=== PATIENT | male | born 1945 | race Caucasian/White ===

== ENCOUNTER 2021-11-23 09:04 | Inpatient (IN) ==
[2021-11-23] MEDS ORDERED: Ondansetron 4 MG/2 ML VIAL IVP PRN ×2 (09:18→13:01)
[2021-11-23] MEDS ORDERED: Morphine Sulfate 2 MG/ML SYRINGE IVP ONE ×2 (09:18→10:10)
[2021-11-23 09:52] LABS: Basophils % 0.4 %; Immature Granulocytes % 0.3 % (0-4); Red Cell Distribution Width 16.8 % (11.5-14.5)
[2021-11-23 09:54] LABS: Eosinophils # 0.1 K/mcL (0.0-0.6); Eosinophils % 1.5 %; Hemoglobin 11.4 g/dL (12.9-16.9); Lymphocytes # 1.4 K/mcL (0.6-4.6); Lymphocytes % 20.6 %; Mean Corpuscular HGB Conc 28.5 g/dL (31.6-35.5); Mean Corpuscular Hemoglobin 23.5 pg (28.0-33.3); Mean Corpuscular Volume 82.5 fL (83.0-100.0); Mean Platelet Volume 9.1 fL (9.4-12.4); Monocytes # 0.6 K/mcL (0.0-1.3); Monocytes % 8.8 %; Neutrophils # 4.7 K/mcL (1.6-8.9); Platelet Count 246 K/mcL (140-400); Red Blood Count 4.85 M/mcL (4.19-5.50); Segmented Neutrophils % 68.4 %; White Blood Count 6.8 K/mcL (4.3-11.1)
[2021-11-23 10:00] LABS: INR 2.3; Prothrombin Time 25.4 Seconds (9.4-12.1)
[2021-11-23 10:03] LABS: Activated Partial Thrombo Time 39.3 Seconds (26.0-36.0)
[2021-11-23 10:04] LABS: BUN/Creatinine Ratio 17 (6-26); Blood Urea Nitrogen 19 mg/dL (8-23); Calcium 9.4 mg/dL (8.6-10.3); Carbon Dioxide 34 mEq/L (23-29); Chloride 102 mEq/L (98-107); Glucose 107 mg/dL (70-105); Osmolality,Calculated 295 (280-300); Potassium 3.8 mEq/L (3.5-5.1); Sodium 141 mEq/L (136-145); Troponin I < 0.03 ng/mL (< 0.04); eGFR For African Americans > 60 (> 60); eGFR For Non-African Americans > 60 (> 60)
[2021-11-23 10:21] LABS: Anisocytosis 1+ (Not Present); Hypochromasia Present (Not Present); Platelet Estimate Normal (Normal)
[2021-11-23] MEDS ORDERED: Naloxone 0.4 MG/ML INJ IVP PRN (11:05)
[2021-11-23 12:02] LABS: Influenza A PCR Negative (Negative); Influenza B PCR Negative (Negative); Resp. Syncytial Virus PCR Negative (Negative); SARS-CoV-2 by PCR (In House) Negative (Negative)
[2021-11-23] MEDS ORDERED: *HR* OxyCODONE Immed Rel 5 MG TABLET PO PRN (12:24)
[2021-11-23] MEDS ORDERED: Piperacillin/Tazobactam 3.375 GM in 0.9 % Sodium Chloride Mini Bag 100 ML IVPB PRN (12:58)
[2021-11-23] MEDS: *HR* OxyCODONE Immed Rel 5 MG TABLET PO PRN ×2 (13:23→18:53)
[2021-11-23] MEDS: carvediloL 6.25 MG TABLET PO SCH (20:47)
[2021-11-23] MEDS: *HR* HYDROmorphone (PF) 1 MG/ML SYRINGE IVP PRN (21:40)
[2021-11-24 04:43] LABS: Hemoglobin 10.1 g/dL (12.9-16.9); Immature Granulocytes % 0.3 % (0-4)
[2021-11-24 04:45] LABS: Basophils % 0.3 %; Eosinophils # 0.1 K/mcL (0.0-0.6); Eosinophils % 0.6 %; Hematocrit 35.2 % (37.5-50.1); Lymphocytes % 12.6 %; Mean Corpuscular HGB Conc 28.7 g/dL (31.6-35.5); Mean Corpuscular Hemoglobin 23.8 pg (28.0-33.3); Mean Platelet Volume 9.6 fL (9.4-12.4); Monocytes # 1.2 K/mcL (0.0-1.3); Monocytes % 12.8 %; Neutrophils # 6.7 K/mcL (1.6-8.9); Platelet Count 228 K/mcL (140-400); Red Blood Count 4.24 M/mcL (4.19-5.50); Red Cell Distribution Width 16.9 % (11.5-14.5); Segmented Neutrophils % 73.4 %; White Blood Count 9.1 K/mcL (4.3-11.1)
[2021-11-24 04:55] LABS: INR 2.3; Prothrombin Time 25.8 Seconds (9.4-12.1)
[2021-11-24 05:04] LABS: Calcium 8.7 mg/dL (8.6-10.3); Magnesium 1.5 mg/dL (1.6-2.6)
[2021-11-24 05:05] LABS: Lymphocytes # 1.2 K/mcL (0.6-4.6)
[2021-11-24] MEDS: *HR* OxyCODONE Immed Rel 5 MG TABLET PO PRN (05:24)
[2021-11-24 06:02] LABS: Hypochromasia Present (Not Present); Platelet Estimate Normal (Normal)
[2021-11-24] MEDS ORDERED: Losartan/HCTZ 50-12.5 TABLET PO SCH (09:00)
[2021-11-24] MEDS: carvediloL 6.25 MG TABLET PO SCH ×2 (09:40→20:14)
[2021-11-24] MEDS: 0.9 % Sodium Chloride 1,000 ML IVC SCH ×2 (09:40→20:14)
[2021-11-24] MEDS: *HR* HYDROmorphone (PF) 1 MG/ML SYRINGE IVP PRN (10:08)
[2021-11-24] MEDS ORDERED: 0.9 % Sodium Chloride 250 ML ONE ×2 (10:19→16:36)
[2021-11-24] MEDS ORDERED: Ondansetron 4 MG/2 ML VIAL ONE (13:44)
[2021-11-24] MEDS ORDERED: Lidocaine -MPF 2% 5 ML VIAL ONE (13:44)
[2021-11-24] MEDS ORDERED: *HR* Succinylcholine 200 MG/10 ML VIAL IVP ONE (13:44)
[2021-11-24] MEDS ORDERED: Lidocaine HCL 4 ML Topical Solution (Laryng-O-Jet Kit Sterile Pak) TP ONE (13:44)
[2021-11-24] MEDS ORDERED: *HR* FentaNYL (PF) 100 MCG/2 ML VIAL ONE (13:50)
[2021-11-24] MEDS ORDERED: *HR* Propofol 200 MG/20 ML VIAL IVP ONE (13:50)
[2021-11-24 14:37] LABS: Prothrombin Time 22.1 Seconds (9.4-12.1)
[2021-11-25 04:48] LABS: Red Cell Distribution Width 16.7 % (11.5-14.5)
[2021-11-25 04:49] LABS: Basophils % 0.1 %; Eosinophils # 0.1 K/mcL (0.0-0.6); Eosinophils % 0.7 %; Hematocrit 29.8 % (37.5-50.1); Hemoglobin 8.8 g/dL (12.9-16.9); Immature Granulocytes % 0.3 % (0-4); Lymphocytes % 10.9 %; Mean Corpuscular HGB Conc 29.5 g/dL (31.6-35.5); Mean Corpuscular Hemoglobin 24.3 pg (28.0-33.3); Mean Corpuscular Volume 82.3 fL (83.0-100.0); Mean Platelet Volume 9.5 fL (9.4-12.4); Monocytes # 1.2 K/mcL (0.0-1.3); Monocytes % 13.3 %; Neutrophils # 6.7 K/mcL (1.6-8.9); Platelet Count 190 K/mcL (140-400); Red Blood Count 3.62 M/mcL (4.19-5.50); Segmented Neutrophils % 74.7 %
[2021-11-25 04:51] LABS: INR 1.7; Prothrombin Time 19.3 Seconds (9.4-12.1)
[2021-11-25 04:57] LABS: Calcium 8.2 mg/dL (8.6-10.3); Magnesium 1.9 mg/dL (1.6-2.6); Phosphorous 4.3 mg/dL (2.7-4.5)
[2021-11-25 05:01] LABS: % Iron Saturation 5 % (20-55); Iron 20 mcg/dL (65-175); Transferrin 266 mg/dL (203-362)
[2021-11-25 05:16] LABS: Ferritin 20 ng/mL (20-250)
[2021-11-25 05:25] LABS: Folate > 22.3 ng/mL (3.0-16.0); Vitamin B12 384 pg/mL (250-1100)
[2021-11-25 05:40] LABS: Platelet Estimate Normal (Normal)
[2021-11-25 05:41] LABS: Hypochromasia Present (Not Present)
[2021-11-25] MEDS: carvediloL 6.25 MG TABLET PO SCH ×2 (08:59→21:15)
[2021-11-25] MEDS ORDERED: Cholecalciferol (D-3) 1,000 UNIT (25MCG) TABLET PO SCH ×2 (09:00)
[2021-11-25] MEDS ORDERED: Ropivacaine/PF 0.5% 30 ML VIAL ONE (11:15)
[2021-11-25] MEDS: *HR* HYDROmorphone (PF) 1 MG/ML SYRINGE IVP PRN (13:01)
[2021-11-25] MEDS: 0.9 % Sodium Chloride 1,000 ML IVC SCH (13:03)
[2021-11-25] MEDS ORDERED: Lidocaine -MPF 4% 5 ML AMPUL ONE (15:09)
[2021-11-25] MEDS ORDERED: *HR* FentaNYL (PF) 100 MCG/2 ML VIAL ONE (15:10)
[2021-11-25] MEDS ORDERED: Lidocaine -MPF 2% 5 ML VIAL ONE (15:10)
[2021-11-25] MEDS ORDERED: *HR* Propofol 200 MG/20 ML VIAL IVP ONE (15:10)
[2021-11-25] MEDS ORDERED: Ondansetron 4 MG/2 ML VIAL ONE (15:10)
[2021-11-25] MEDS ORDERED: *HR* Rocuronium Bromide 50 MG/5 ML VIAL ONE (15:11)
[2021-11-25] MEDS ORDERED: EPHEDrine 50 MG/ML VIAL ONE (17:06)
[2021-11-25] MEDS ORDERED: Albumin Human 5% 12.5 GM/250 ML IV.SOLN ONE (17:07)
[2021-11-25] MEDS: *HR* FentaNYL (PF) 100 MCG/2 ML VIAL IVP PRN ×3 (18:49→19:29)
[2021-11-25] MEDS ORDERED: *HR* FentaNYL (PF) 100 MCG/2 ML VIAL IVP ONE (18:53)
[2021-11-25] MEDS ORDERED: Ondansetron 4 MG/2 ML VIAL IVP PRN (20:35)
[2021-11-25] MEDS ORDERED: Acetaminophen 325 MG TABLET PO PRN (20:35)
[2021-11-25] MEDS ORDERED: Naloxone 0.4 MG/ML INJ IVP PRN (20:35)
[2021-11-25] MEDS ORDERED: *HR* HYDROcodone/Acet 5/325 mg TABLET PO PRN (20:35)
[2021-11-25] MEDS ORDERED: *HR* HYDROmorphone (PF) 1 MG/ML SYRINGE IVP PRN (20:35)
[2021-11-25] MEDS: *HR* OxyCODONE Immed Rel 5 MG TABLET PO PRN (21:14)
[2021-11-25] MEDS: CeFAZolin 2 GM/120 ML BAG IVPB SCH (23:36)
[2021-11-26 03:17] LABS: Basophils % 0.1 %; Red Cell Distribution Width 16.8 % (11.5-14.5)
[2021-11-26 03:18] LABS: Hematocrit 28.6 % (37.5-50.1); Hemoglobin 8.3 g/dL (12.9-16.9); Immature Granulocytes % 0.5 % (0-4); Lymphocytes # 0.4 K/mcL (0.6-4.6); Lymphocytes % 3.7 %; Mean Corpuscular Hemoglobin 24.4 pg (28.0-33.3); Mean Corpuscular Volume 84.1 fL (83.0-100.0); Mean Platelet Volume 9.3 fL (9.4-12.4); Monocytes # 0.7 K/mcL (0.0-1.3); Monocytes % 7.1 %; Neutrophils # 8.7 K/mcL (1.6-8.9); Platelet Count 176 K/mcL (140-400); Segmented Neutrophils % 88.6 %; White Blood Count 9.8 K/mcL (4.3-11.1)
[2021-11-26 03:36] LABS: Calcium 8.3 mg/dL (8.6-10.3); Magnesium 1.8 mg/dL (1.6-2.6); Potassium 4.3 mEq/L (3.5-5.1)
[2021-11-26 04:19] LABS: Hypochromasia Present (Not Present); Platelet Estimate Normal (Normal)
[2021-11-26] MEDS: Cholecalciferol (D-3) 1,000 UNIT (25MCG) TABLET PO SCH (08:17)
[2021-11-26] MEDS: carvediloL 6.25 MG TABLET PO SCH ×2 (08:17→20:23)
[2021-11-26] MEDS: *HR* OxyCODONE Immed Rel 5 MG TABLET PO PRN ×3 (08:17→20:23)
[2021-11-26] MEDS: CeFAZolin 2 GM/120 ML BAG IVPB SCH (08:17)
[2021-11-26] MEDS: Losartan/HCTZ 50-12.5 TABLET PO SCH (15:34)
[2021-11-26] MEDS: 0.9 % Sodium Chloride 1,000 ML IVC SCH (15:36)
[2021-11-26] MEDS ORDERED: Cyanocobalamin (B-12) 1,000 MCG/ML VIAL SQ ONE (17:15)
[2021-11-26] MEDS: Iron Sucrose Complex 250 MG in 0.9 % Sodium Chloride 250 ML IVPB SCH (18:01)
[2021-11-26] MEDS: *HR* Heparin 5,000 UNIT/ML VIAL SQ SCH (18:06)
[2021-11-27 05:30] LABS: Basophils % 0.1 %; Eosinophils % 0.2 %; Hematocrit 27.7 % (37.5-50.1); Hemoglobin 8.2 g/dL (12.9-16.9); Immature Granulocytes % 0.4 % (0-4); Lymphocytes # 0.9 K/mcL (0.6-4.6); Lymphocytes % 9.2 %; Mean Corpuscular HGB Conc 29.6 g/dL (31.6-35.5); Mean Corpuscular Hemoglobin 24.6 pg (28.0-33.3); Mean Corpuscular Volume 83.2 fL (83.0-100.0); Mean Platelet Volume 10.1 fL (9.4-12.4); Monocytes # 1.1 K/mcL (0.0-1.3); Monocytes % 10.8 %; Neutrophils # 8.1 K/mcL (1.6-8.9); Platelet Count 218 K/mcL (140-400); Red Blood Count 3.33 M/mcL (4.19-5.50); Red Cell Distribution Width 17.2 % (11.5-14.5); Segmented Neutrophils % 79.3 %; White Blood Count 10.2 K/mcL (4.3-11.1)
[2021-11-27 05:37] LABS: INR 1.2; Prothrombin Time 13.9 Seconds (9.4-12.1)
[2021-11-27 05:51] LABS: BUN/Creatinine Ratio 31 (6-26); Blood Urea Nitrogen 44 mg/dL (8-23); Calcium 8.9 mg/dL (8.6-10.3); Carbon Dioxide 31 mEq/L (23-29); Chloride 101 mEq/L (98-107); Glucose 114 mg/dL (70-105); Osmolality,Calculated 296 (280-300); Potassium 4.4 mEq/L (3.5-5.1); Sodium 137 mEq/L (136-145); eGFR For African Americans > 60 (> 60); eGFR For Non-African Americans 50 (> 60)
[2021-11-27] MEDS: *HR* Heparin 5,000 UNIT/ML VIAL SQ SCH ×2 (06:13→18:01)
[2021-11-27] MEDS: carvediloL 6.25 MG TABLET PO SCH ×2 (10:12→21:11)
[2021-11-27] MEDS: Cholecalciferol (D-3) 1,000 UNIT (25MCG) TABLET PO SCH (10:13)
[2021-11-27] MEDS: Losartan/HCTZ 50-12.5 TABLET PO SCH (10:13)
[2021-11-27] MEDS: Iron Sucrose Complex 250 MG in 0.9 % Sodium Chloride 250 ML IVPB SCH (10:16)
[2021-11-27] MEDS: 0.9 % Sodium Chloride 1,000 ML IVC SCH (11:56)
[2021-11-27] MEDS: *HR* OxyCODONE Immed Rel 5 MG TABLET PO PRN ×2 (12:24→21:11)
[2021-11-27] MEDS ORDERED: *HR* Warfarin 5 MG TABLET PO ONE (18:00)
[2021-11-27] MEDS ORDERED: Warfarin perPT PO PRN (18:00)
[2021-11-28] MEDS: *HR* OxyCODONE Immed Rel 5 MG TABLET PO PRN ×3 (04:08→17:29)
[2021-11-28 05:03] LABS: Mean Platelet Volume 10.3 fL (9.4-12.4); Monocytes % 13.7 %; Platelet Count 209 K/mcL (140-400)
[2021-11-28 05:05] LABS: Basophils % 0.4 %; Eosinophils # 0.3 K/mcL (0.0-0.6); Hematocrit 27.8 % (37.5-50.1); Hemoglobin 8.2 g/dL (12.9-16.9); Immature Granulocytes % 0.4 % (0-4); Lymphocytes # 1.2 K/mcL (0.6-4.6); Lymphocytes % 14.1 %; Mean Corpuscular HGB Conc 29.5 g/dL (31.6-35.5); Mean Corpuscular Hemoglobin 24.6 pg (28.0-33.3); Mean Corpuscular Volume 83.5 fL (83.0-100.0); Monocytes # 1.2 K/mcL (0.0-1.3); Neutrophils # 5.8 K/mcL (1.6-8.9); Nucleated Red Blood Cells 0.2 /100 WBC (0); Red Blood Count 3.33 M/mcL (4.19-5.50); Red Cell Distribution Width 17.8 % (11.5-14.5); Segmented Neutrophils % 68.4 %; White Blood Count 8.4 K/mcL (4.3-11.1)
[2021-11-28 05:11] LABS: INR 1.2; Prothrombin Time 13.8 Seconds (9.4-12.1)
[2021-11-28 05:22] LABS: BUN/Creatinine Ratio 39 (6-26); Blood Urea Nitrogen 44 mg/dL (8-23); Calcium 8.8 mg/dL (8.6-10.3); Carbon Dioxide 30 mEq/L (23-29); Chloride 102 mEq/L (98-107); Glucose 105 mg/dL (70-105); Magnesium 1.9 mg/dL (1.6-2.6); Osmolality,Calculated 300 (280-300); Potassium 3.8 mEq/L (3.5-5.1); Sodium 139 mEq/L (136-145); eGFR For African Americans > 60 (> 60); eGFR For Non-African Americans > 60 (> 60)
[2021-11-28 05:26] LABS: Hypochromasia Present (Not Present); Platelet Estimate Normal (Normal)
[2021-11-28] MEDS: carvediloL 6.25 MG TABLET PO SCH ×2 (09:19→21:09)
[2021-11-28] MEDS: Cholecalciferol (D-3) 1,000 UNIT (25MCG) TABLET PO SCH (09:19)
[2021-11-28] MEDS ORDERED: *HR* Warfarin 5 MG TABLET PO ONE (18:00)
[2021-11-29 05:18] LABS: INR 1.4
[2021-11-29 05:19] LABS: Basophils % 0.4 %; Eosinophils # 0.3 K/mcL (0.0-0.6); Eosinophils % 3.8 %; Hematocrit 26.7 % (37.5-50.1); Immature Granulocytes % 0.4 % (0-4); Lymphocytes # 1.2 K/mcL (0.6-4.6); Lymphocytes % 16.9 %; Mean Corpuscular Hemoglobin 24.9 pg (28.0-33.3); Mean Corpuscular Volume 83.2 fL (83.0-100.0); Mean Platelet Volume 10.6 fL (9.4-12.4); Monocytes # 0.8 K/mcL (0.0-1.3); Monocytes % 11.8 %; Neutrophils # 4.6 K/mcL (1.6-8.9); Nucleated Red Blood Cells 0.7 /100 WBC (0); Platelet Count 197 K/mcL (140-400); Red Blood Count 3.21 M/mcL (4.19-5.50); Red Cell Distribution Width 18.1 % (11.5-14.5); Segmented Neutrophils % 66.7 %; White Blood Count 6.9 K/mcL (4.3-11.1)
[2021-11-29 05:30] LABS: BUN/Creatinine Ratio 38 (6-26); Blood Urea Nitrogen 40 mg/dL (8-23); Calcium 8.8 mg/dL (8.6-10.3); Carbon Dioxide 35 mEq/L (23-29); Chloride 102 mEq/L (98-107); Glucose 104 mg/dL (70-105); Magnesium 1.8 mg/dL (1.6-2.6); Osmolality,Calculated 302 (280-300); Potassium 3.8 mEq/L (3.5-5.1); Sodium 141 mEq/L (136-145); eGFR For African Americans > 60 (> 60); eGFR For Non-African Americans > 60 (> 60)
[2021-11-29] MEDS: carvediloL 6.25 MG TABLET PO SCH (09:50)
[2021-11-29] MEDS: Cholecalciferol (D-3) 1,000 UNIT (25MCG) TABLET PO SCH (09:50)
[2021-11-29 10:00] VITALS: O2SAT 96
[2021-11-29 12:52] LABS: Influenza A PCR Negative (Negative); Influenza B PCR Negative (Negative); Resp. Syncytial Virus PCR Negative (Negative)
[2021-11-29 13:35] LABS: SARS-CoV-2 by PCR (In House) Negative (Negative)
[2021-11-29 15:28] VITALS: BP 153/87; PULSE 79; TEMP 97.5
[2021-11-29] MEDS ORDERED: *HR* Warfarin 5 MG TABLET PO ONE (18:00)
== END 2021-11-29 18:27 | DRG 480 ==
LOC: 4WAOSI 09:04 → EMEROOARM 09:04 → SUATTDRO 11:26 → 4WAOSI 12:46 → SUATTDRO 11-24 10:59
PROVIDERS: ADMIT Family Medicine; ATTEND Pharmacist